=== PATIENT | female | born 1955 | race Asian ===

== ENCOUNTER 2022-04-26 12:01 | Day surgery (SDC) | payer OTHER, SELFPAY ==
--- NOTE | 2022-04-26 | PATH_ITS ---
[facility] Accession Number: [id number] No. of containers..01 Tissue . 01 Material submitted: . rectum - RECTAL . 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 No lymphovascular perineural invasion identified. See comment. [facility] 04/29/2022 1147 Local . 01 Comment: Immunohistochemical staining for markers and microsatellite stability (MSI) will be performed and the results will be reported as an addendum. . As part of routine quality control chemist, this case was also reviewed by Dr. Jaci Rios, who agrees with the interpretation. . Results were called to Dr. Veliz's medical editor, Ms Ruiz by Dr. Mora on 04/29/2022 at 1350 hours. . 01 Electronically signed: . Kelsie Mora MD, Pathologist NPI- [id number] . 01 Gross description: . The specimen is received in formalin labeled with the patient's name, , and rectal and consists of multiple toth soft tissue fragments, aggregating to 2.3 x 1.7 x 0.4 cm. The specimen is filtered into a biopsy bag. Submitted entirely in cassette A1. ([id number]) /[facility] 04/28/2022 1817 Local . 01 Pathologist provided ICD-10: C20 . 01 CPT . 164820 Specimen Comment: A courtesy copy of this report has been sent to [phone] Performed at: 01 [facility] [address] [place] [address] [address] [facility], [place], [place] [id number] MD Luis Carlos Gayle MD Phone: [phone]
[2022-04-26 13:42] VITALS: BP 121/76; PULSE 63; RESP 16; TEMP 36.2; O2SAT 100; BMI 32.3
[2022-04-26] MEDS: LACTATED RINGERS 1,000 ML 200 ML IV (13:50)
--- NOTE | 2022-04-26 15:06 | PM.HP.1 ---
History of Present Illness History of Present Illness Date Patient Seen: 04/26/22 Time Patient Seen: 15:06 Chief complaint: SDC Narrative: The patient presents for colorectal screening. Personal history of colonic polyps. Last colonoscopy 2016 demonstrated benign polyps. No personal or family history of colon cancer. On further history denies any recent gastrointestinal symptoms with the exception intermittent bright red blood per rectum. Patient History Family & Social History Social History: household members spouse Tobacco & Substance use: Smoking Status Never smoker alcohol intake current alcohol intake frequency holiday/special occasion Substance Use Type does not use Meds Home Medications and Allergies Allergies Allergy/AdvReac Type Severity Reaction Status Date / Time iodine AdvReac Intermediate Rash Verified 04/26/22 13:37 Exam Vital Signs (past 8 hours): - 04/26/22 13:42 Temperature 97.2 F L Pulse Rate 63 Respiratory Rate 16 Blood Pressure 121/76 Pulse Oximetry 100 Oxygen Delivery Method Room Air Oxygen Delivery Method Room Air Narrative Exam Narrative: General adult woman alert oriented no acute distress Abdomen soft nontender nondistended Assessment & Plan Assessment & Plan narrative: The patient requires colorectal screening and colonoscopy is recommended. Technical details were discussed. Risks, benefits, alternatives explained. Risks including but not limited to myocardial infarction, aspiration, bleeding, pain, missed lesion, incomplete examination, need for further radiographic studies, colonic perforation, and need for major abdominal surgery were discussed. All questions were answered to their satisfaction, and they are in agreement with this plan. Time Spent With Patient Critical Care time: I spent a total of [] minutes of critical care time on this patient's care today; this time is exclusive of procedural time.
[2022-04-26 15:40] VITALS: BP 107/60; PULSE 70; RESP 14; TEMP 35.9; O2SAT 96
--- NOTE | 2022-04-26 15:44 | PM.OP.COLON ---
Operative Date/Time/Diagnoses Date of procedure: 04/26/22 Time of procedure: 15:44 Pre-op diagnosis: Colorectal screening, rectal bleeding Post-op diagnosis: other (Rectal cancer) Procedure & Clinicians Study performed: Colonoscopy Same procedure as scheduled: Yes Indications: Colorectal screening, rectal bleeding Surgeon: Raul Veliz Procedure Notes Procedure in detail: The history and physical was performed/updated and the patient is ASA class is 2. The procedure was discussed in detail with the patient. Potential risks complications including infection, bleeding, missed diagnosis, perforation, need for surgery, and were explained. Their questions were answered and informed consent was obtained. Patient was brought to the procedure room and placed standard monitoring equipment. The patient's vital signs were monitored continuously throughout the entire procedure. Prior to starting time-out was performed. The patient was placed in the left lateral recumbent position. Procedural sedation was administered by anesthesia. Examination began with a thorough inspection of the perianal area there was no evidence of fissures, fistulae, external hemorrhoids or cutaneous malignancy. Digital rectal exam demonstrated firm anterior rectal mass approximately 6 cm the dentate line The colonoscopy scope was then placed into the anal canal and was advanced to the cecum, which was identified by the ileocecal valve, the appendiceal orifice and the confluence of the taenia. The scope was then slowly withdrawn examining colon thoroughly in all directions, irrigating it of any residual stool. Within the rectum on the anterior wall there is a firm friable mass with central necrosis size is approximately 4 cm. Multiple biopsies were taken with hot snare. Mass consistent in its appearance with a distal rectal carcinoma The patient tolerated the procedure well. They will be discharged once criteria are met. The prep was of good/excellent quality. The withdrawl time was 8 minutes. Specimen(s): other (Rectal mass) Impression: Rectal cancer Post-procedure Plan for aftercare: Follow-up in surgical clinic in 1 week time to discuss pathology findings Disposition: same day surgery
[2022-04-26 15:45] VITALS: BP 106/71; PULSE 69; RESP 25; O2SAT 96
[2022-04-26 15:50] VITALS: BP 112/74; PULSE 70; RESP 18; O2SAT 100
[2022-04-26 15:55] VITALS: BP 118/76; PULSE 67; RESP 18; O2SAT 100
[2022-04-26 16:48] VITALS: BP 136/69; PULSE 68; RESP 12; O2SAT 99
--- NOTE | 2022-04-26 16:53 | SUR.PHASEI ---
moved pt from phase 1 to room 5 to speak with , hand off to STEVEN Martinez.
== END 2022-04-26 16:55 | disposition home or self-care (01) ==
PROVIDERS: Referring Provider Surgery; Visit Provider Surgery
PROC: 0DJD8ZZ Inspection of Lower Intestinal Tract, Via Natural or Artificial Opening Endoscopic (ICD-10-PCS; CPT 45378; principal; 2022-04-26 14:00)
DX: C20 Malignant neoplasm of rectum (principal); Z86.010 Personal history of colon polyps
CPT/HCPCS: 45385; J2704

== ENCOUNTER → 2022-05-05 09:25 | Outpatient (CLI) | payer OTHER, SELFPAY ==
[2022-05-05 11:08] LABS: BUN Creatinine Ratio 17.2 (6-22); Blood Urea Nitrogen 15 mg/dL (7-17); Calcium 9.5 mg/dL (8.4-10.2); Carbon Dioxide 29 mmol/L (22-32); Chloride 103 mmol/L (98-107); Estimated Glomerular Filt Rate > 60 mL/min (>60); Glucose 160 mg/dL (80-110); HEMOLYSIS < 15 (0-50); Potassium 3.8 mmol/L (3.4-5.1); Sodium 138 mmol/L (137-145)
[2022-05-05 11:39] LABS: Carcinoembryonic Antigen 6.1 ng/mL (0.1-3.0)
== END ==
PROVIDERS: Referring Provider Surgery; Visit Provider Surgery
DX: C20 Malignant neoplasm of rectum (principal)
CPT/HCPCS: 36415; 80048; 82378

== ENCOUNTER → 2022-05-06 08:02 | Outpatient (CLI) | payer OTHER, SELFPAY ==
--- NOTE | 2022-05-06 08:04 | DI.MRI.S_ITS ---
PROCEDURE: MR PELIS WO/W CON INDICATIONS: Rectal Cancer TECHNIQUE: Coronal HASTE, sagittal T2 FSE, axial T1 FSE, axial and coronal nonbreath-hold T2 FSE. Axial dynamic VIBE during administration of contrast. Post-contrast axial and coronal VIBE/2-D FLASH with fat saturation from the iliac crests to the symphysis. Optional diffusion weighted imaging and ADC may be performed. COMPARISON: None. FINDINGS: Image quality: Excellent. Rectum: Morphology: Circumferential Clock face of tumor involvement: Multifocal: - from 6:00 to 11:00 on series 4, image 16. - 12 o'clock to 2 o'clock and 5:00 to 7:00 on series 4, image 15. Mucinous (high T2 signal): No Craniocaudal length: 5.7 centimeter (series 2, image 32) Distance to anal verge: 3.2 centimeter Distance to top of sphincter complex/anorectal junction: Not applicable, at the junction Relationship to anterior peritoneal reflection: Below Tumor at or below puborectalis sling: At and below T staging: Depth of extramural invasion: 5 mm. Extramural vascular invasion: None T3 tumors only: distance to mesorectal fascia (circumferential resection margin): Not applicable*. There is low level rectal involvement, grade 4, with tumor invading the levator muscles on the left (series 5, image 14). Pelvic organ involvement: Genitourinary: None. Pelvic sidewall (obturator internus, piriformis, ischiococcygeus muscles): No Pelvic floor (pubococcygeus, iliococcygeus, puborectalis, levator plate): Levator plate Sacrum: No Vessels (internal and external iliac arteries and veins): No Nerves (lumbosacral nerve roots): No Regional lymph nodes (mesorectal, inguinal, iliac): 3 mesorectal lymph nodes which meet strict criteria for suspicious. Two superior rectal nodes which meet criteria. Suspicious right external iliac chain node measuring 1.1 centimeter short axis (05/04). Other bowel and peritoneum: There is hypointense signal expanding the uterus and cervix. Bones: Marrow is normal in overall signal. IMPRESSION: Low rectal tumor invading the levator muscles on the right. Multiple abnormal mesorectal, superior rectal and right external iliac chain nodes. Hypointense signal expanding the endometrium and cervix. A uterine malignancy is suspected. Recommend pelvic ultrasound. Dictated by: Gary Mcclain M.D. on 05/06/2022 at 11:57 Approved by: Gary Mcclain M.D. on 05/06/2022 at 13:04
== END ==
PROVIDERS: Referring Provider Surgery; Visit Provider Surgery
DX: C20 Malignant neoplasm of rectum (principal); R59.0 Localized enlarged lymph nodes
CPT/HCPCS: 72197; A9579

== ENCOUNTER → 2022-05-07 09:27 | Outpatient (CLI) | payer OTHER, SELFPAY ==
--- NOTE | 2022-05-07 | DI.CT.S_ITS ---
PROCEDURE: CT CHEST ABDOMEN W CON INDICATIONS: Malignant neoplasm of rectum TECHNIQUE: After the administration of oral contrast and intravenous contrast, 5 mm thick sections acquired from the lung apices to the iliac crests. 5 mm coronal and sagittal reformats were performed, with additional 7 mm coronal MIP reformats through the lungs. For radiation dose reduction, the following was used: automated exposure control, adjustment of mA and/or kV according to patient size. The patient was pretreated before this injection for height and allergy. No immediate contrast reaction was experienced. COMPARISON: [facility], MR, MR PELVIS WO/W CON, 05/06/2022, 8:53. FINDINGS: Image quality: Excellent. CHEST: Lungs and pleura: No acute air space opacities. No pleural effusions or pneumothorax. Central and peripheral airways are patent and normal in caliber. Mediastinum: Heart size is normal. No pericardial effusion. No mediastinal or hilar adenopathy by size criteria. Thoracic aorta and central pulmonary arteries are normal in size. Esophagus is normal in caliber. There is a small hiatal hernia. Chest wall: No axillary or supraclavicular adenopathy by size criteria. Thyroid gland demonstrates a 2.4 cm right thyroid nodule. ABDOMEN: Solid organs: Liver is normal in size and enhancement. Gallbladder wall is not thickened . Biliary system is non dilated. Pancreas enhances normally. Spleen is normal in size and enhancement. No adrenal nodules. Kidneys are normal in size and enhancement, without hydronephrosis. Peritoneum and bowel: Bowel loops demonstrate normal wall thickness and caliber. No free fluid or air. The appendix measures at the upper limits of normal for size at 6 mm, yet without surrounding inflammatory change. Nodes and vessels: No retroperitoneal or mesenteric adenopathy by size criteria. Aorta and inferior vena cava are normal in caliber. Incidental note is made of a circumaortic left renal vein. Bones: No suspicious bony lesions. No vertebral body compression fractures. Age-appropriate bony degenerative changes are seen. Miscellaneous: No ventral hernias. The uterus is only partially seen on this study. IMPRESSION: No pulmonary nodules are seen. No liver masses are seen. No enlarged retroperitoneal lymph nodes are seen. There is a 2.4 cm right thyroid nodule. When clinically appropriate, please consider a follow-up thyroid ultrasound for further evaluation. Appendix measuring at the upper limits of normal, without associated inflammatory change. Additional findings: Small hiatal hernia Circumaortic left renal vein Dictated by: Duran Martínez M.D. on 05/07/2022 at 14:57 Approved by: Duran Martínez M.D. on 05/07/2022 at 15:01
== END ==
PROVIDERS: Referring Provider Surgery; Visit Provider Surgery
DX: C20 Malignant neoplasm of rectum (principal); E04.1 Nontoxic single thyroid nodule; K44.9 Diaphragmatic hernia without obstruction or gangrene
CPT/HCPCS: 71260; 74160; Q9967

== ENCOUNTER 2022-06-10 12:05 | Day surgery (SDC) | payer OTHER, SELFPAY ==
[2022-06-10 13:03] VITALS: BP 121/72; PULSE 63; RESP 18; TEMP 36.4; O2SAT 99; BMI 32.9
== END 2022-06-10 17:33 | disposition home or self-care (01) ==
LOC: OR 12:06
PROVIDERS: Referring Provider Surgery; Visit Provider Surgery
DX: Z53.9 Procedure and treatment not carried out, unspecified reason (principal)
CPT/HCPCS: J1885

== ENCOUNTER 2022-06-11 07:33 | Day surgery (SDC) | payer OTHER, SELFPAY ==
--- NOTE | 2022-06-11 | DI.RAD.S_ITS ---
PROCEDURE: XR CHEST 1V INDICATIONS: PORT A CATH PLACEMENT TECHNIQUE: One view of the chest was acquired. COMPARISON: [facility], CT, CT CHEST ABDOMEN W CON, 05/07/2022, 11:07. FINDINGS: Surgical changes and devices: Right chest port with the tip in the superior vena cava.. Lungs and pleura: Lungs are clear. No pleural effusions or pneumothorax. Mediastinum: Mediastinal contours appear normal. Heart size is normal. Bones and chest wall: No suspicious bony lesions. Overlying soft tissues appear unremarkable. IMPRESSION: Chest port tip within the right superior vena cava. No pneumothorax. Dictated by: Butch Gamez M.D. on 06/11/2022 at 9:29 Approved by: Butch Gamez M.D. on 06/11/2022 at 9:31
[2022-06-11 08:09] VITALS: BP 127/75; PULSE 68; RESP 16; TEMP 36.3; O2SAT 99; BMI 32.7
[2022-06-11] MEDS: LACTATED RINGERS 1,000 ML 100 ML IV (08:09)
[2022-06-11] MEDS: ACETAMINOPHEN 325 MG TABLET 975 MG PO (08:42)
--- NOTE | 2022-06-11 09:07 | P.HP_ITS ---
History of Present Illness History of Present Illness Date Patient Seen: 06/11/22 Time Patient Seen: 09:07 Chief complaint: port placement Narrative: 66-year-old woman with a history of rectal cancer here for elective Port-A-Cath placement. No prior indwelling venous catheter. She is feeling well today. [facility] Surgical History (Updated 06/08/22 @ 11:25 by Mitchell Marcelo MD) Hx of colonoscopy (04/26/22) Social History (System 03/31/22 @ 14:50 by Jewels Bee) household members: spouse Smoking Status: Never smoker alcohol intake: current Meds Home Medications and Allergies Home Medications Medication Instructions Recorded Confirmed Type ascorbic acid (vitamin C) 500 mg 500 mg PO DAILY 05/25/22 06/11/22 History capsule,extended release (Vitamin C) cholecalciferol (vitamin D3) 25 25 mcg PO DAILY 05/25/22 06/11/22 History mcg (1,000 unit) capsule (Vitamin D3) diphenhydramine HCl 25 mg capsule 25 mg PO DAILY allergy 05/25/22 06/11/22 History (Benadryl) multivitamin 1 tab PO DAILY 05/25/22 06/11/22 History tumeric 100 mg-chet 150 mg-olive 1 cap PO DAILY 05/25/22 06/11/22 History 50 mg-oreg 150 mg-caprylate capsule Allergies Allergy/AdvReac Type Severity Reaction Status Date / Time iodine AdvReac Intermediate Rash Verified 06/11/22 07:53 Exam Vital Signs (past 8 hours): - 06/11/22 08:09 Temperature 97.4 F L Pulse Rate 68 Respiratory Rate 16 Blood Pressure 127/75 Pulse Oximetry 99 Oxygen Delivery Method Room Air Oxygen Delivery Method Room Air Narrative Exam Narrative: General adult woman alert oriented no acute distress Chest nonlabored respiration Abdomen soft nontender nondistended Assessment & Plan Assessment and plan (1) Rectal cancer: Status: Acute Assessment & Plan narrative: 66-year-old woman with a history of rectal cancer here for Port-A-Cath placemen t. Overview of the procedure was discussed with the patient at the bedside. Operative risks including hemorrhage, infection, mechanical device failure, pneumothorax, embolism, heart attack stroke and were discussed. Questions have been answered she is in agreement with this plan. She provides her written and verbal consent to proceed.
[2022-06-11] MEDS: CEFAZOLIN 2 GM/100 ML PREMIX 100 ML IV (09:09)
--- NOTE | 2022-06-11 09:24 | SUR.OPER ---
Supine on padded OR bed, head on pillow, arms padded and tucked at sides, legs uncrossed, safety belt at thigh, tape over blanket over lower legs .
[2022-06-11] MEDS: BUPIVACAINE 0.5% (PF) 10 ML VIAL INJ (09:34)
[2022-06-11] MEDS: HEPARIN 5,000 UNIT, SODIUM CHLORIDE 0.9% 50 ML IV (09:35)
--- NOTE | 2022-06-11 10:05 | P.OP_ITS ---
Operative Date/Time/Diagnoses Date of procedure: 06/11/22 Time of procedure: 10:05 Pre-op diagnosis: Rectal cancer Post-op diagnosis: same Procedure & Clinicians Procedure: Port-A-Cath placement with ultrasound guidance Same procedure as scheduled: Yes Indications: 66-year-old woman with rectal cancer plan is neoadjuvant chemotherapy she is here today for Port-A-Cath placement. Surgeon: Raul Veliz Click Yes if Unassisted: Yes Anesthesia Type: General Operative Notes Findings: Tip of the catheter is within the SVC on fluoroscopy. Port draws and flushes easily Specimen(s): none sent Estimated Blood Loss (mL): 20 Procedure in detail: Patient was brought to the operating room placed supine on table. Bilateral lower extremity compressive devices were applied. General anesthesia was induced and he was intubated with an LMA. He was then prepped and draped in usual sterile fashion. Time-out was performed ensure the correct patient procedure necessary equipment within the operating room. He received 2 g of Ancef prior to incision. Under ultrasound guidance the right internal jugular vein was accessed under direct visualization. The guidewire was then threaded through the needle. Its placement was then confirmed using fluoroscopy. The dilator was then placed over the guidewire. The catheter was then inserted through the sheath. Placement was again confirmed with fluoroscopy. A subcutaneous pocket was made in the right chest wall. The tunneler device was used to move the catheter from the neck to the chest pocket. The port was attached after it was primed with heparined saline. The port was tested to ensure that it flushed easily and had good blood return. The port was then secured to the underlying fascia using interupted 0 Prolene suture. Hemostasis was achieved. The wound was irrigated with sterile saline. The subcutaneous tissues were reapproximated with the 3 0 Vicryl and then skin closed with 4-0 Monocryl. The skin was sealed with Dermabond. Patient tolerated procedure well. The sponge and instrument count at the end operation was correct. Pa tieboom emerged from general anesthesia was extubated and taken to the postoperative care unit in stable condition Chest x-ray in the postoperative care unit is pending. Complications: none Post-operative Condition: stable Disposition: same day surgery
[2022-06-11 10:06] VITALS: BP 108/63; PULSE 97; RESP 12; TEMP 36.1; O2SAT 96
[2022-06-11 10:07] VITALS: BP 118/71; PULSE 90; RESP 14; O2SAT 96
[2022-06-11 10:11] VITALS: BP 111/70; PULSE 60; RESP 18; O2SAT 93
[2022-06-11] MEDS: KETOROLAC 30 MG/ML VIAL 15 MG IV (10:14)
[2022-06-11 10:16] VITALS: BP 118/71; PULSE 62; RESP 12; TEMP 36.6; O2SAT 95
[2022-06-11 10:21] VITALS: BP 113/73; PULSE 59; RESP 12; TEMP 36.6; O2SAT 96
== END 2022-06-11 10:45 | disposition home or self-care (01) ==
PROVIDERS: Referring Provider Surgery; Visit Provider Surgery
PROC: (CPT 36561; principal; 2022-06-11 09:00)
DX: C20 Malignant neoplasm of rectum (principal)
CPT/HCPCS: 36561; 71045; 76000; C1788; J0690; J1644; J1885; J2405; J2704; J3010

== ENCOUNTER → 2023-03-15 10:45 | Outpatient (CLI) | payer MEDICARE, OTHER, SELFPAY ==
--- NOTE | 2023-03-15 | OV.WND_ITS ---
Progress Note Details Patient Name: Fern Grace Patient Number: [id number] Clinician: Jess Malin RN Patient Date of : 1955 Physician / Resident Associate: Clay Singh Patient SUBJECTIVE Chief Complaint This information was obtained from the Patient. Skin issues around stoma Allergies iodine (Reaction: rash) HPI This information was obtained from the Patient. The following HPI elements were documented for the patient's wound: Context: colostomy The patient is a 67-year-old female with rectal cancer who was referred by ROCIO Pate for colostomy care. She is status post APR 02/07/23 and has made an uneventful recovery. The patient did receive neoadjuvant chemotherapy and radiation. She reports that her appetite and strength are slowly improving. She denies having any abdominal pain or chandler stoma skin irritation nor has she had any colostomy leakage. No fever or chills. Her abdominal incision has healed without any problems. LABS: 09/05/22: WBC 7.5, hemoglobin 12.7, HCT 37.3, PLT 146, electrolytes normal, GFR greater than 60, AST 41, remainder of LFTs normal Family History This information was obtained from the Patient. Unknown History- Father Lung Disease- Mother Social History This information was obtained from the Patient. Lives in: home with Medical History This information was obtained from the Patient. Patient has a medical history of: Rectal cancer Colostomy Multinodular goiter Thickened endometrium Vaginal spotting Fern Grace [id number] 1955 Additional Information Does patient have a history of Cancer? Yes? Complete all questions.: Yes Location of Cancer: Rectal Patient underwent Radiation Treatment? If yes, answer question below.: Yes Surgical History This information was obtained from the Patient. Patient has a surgical history of: LAR with Colostomy- 02/07/2023 Review of Systems (ROS) This information was obtained from the Patient. Complaints and Symptoms Patient denies com plaints or sy m ptom s related to: Cardiovascular (Central): Chest Pain, Dyspnea on Exertion Constitutional Symptoms (General Health): Chills, Fever Gastrointestinal (GI): Stomach/abdominal pain Prior Wound History: Bleeding, Drainage, Erythema, Pain Respiratory: Cough, Shortness of Breath OBJECTIVE Vitals Height/Length: 59 in (149.86 cm), Weight: 144.4 lbs (65.64 kgs), BMI: 29.2, Temperature: 98.3 ?F (36.83 ?C), Pulse: 65 bpm, Respiratory Rate: 16 breaths/min, Blood Pressure: 100/65 mmHg, Pulse Oximetry: 99 %. Physical Exam Constitutional: Vital signs reviewed and noted. Well developed, well nourished, and in no acute distress. Alert and oriented x3. Respiratory: Even respirations without use of accessory muscles. No intercoastal retractions noted. Even and non labored respiration. Gastrointestinal (GI): Soft, nontendar, and nondistened, well healed midline incision, colostomy left upper quadrant, no chandler stoma skin irritation. Integumentary (Hair, Skin): See wound assessment. Neurological: Sensation: Symmetric function by informal observation. Psychiatric: Orientation to time, place and person: Normal affect with normal thought pattern. Additional Information The patient's potential to heal is: excellent. ASSESSMENT Active Problems Fern [id number] 1955 ICD-10 (Encounter Diagnosis) Z93.3 - Colostomy status (Encounter Diagnosis) Z43.3 - Encounter for attention to colostomy (Encounter Diagnosis) C20 - Malignant neoplasm of rectum General Notes The patient is status post APR for treatment of rectal cancer. The colostomy is healing well and she is not currently having any difficulties. Plan to continue colostomy care as per recommendations by Jess Bravo RN. PLAN Additional Orders: Hygiene May shower - Without using your appliance Dressings Other order - Stoma continue to use appliance #[id number]. I will order you [facility] [employer] Physician Review: Reviewed and evaluated labs. Discussed the Plan of Care @ bedside with - the patient and I, as the physician, have reviewed the orders scribed by the center RN's and agree. General Notes Ostomy Secretes Go to their website to look at Noe Babb, under garments . Review [employer] web site. Plan of Care: 01. ENSURE/ESTABLISH OPTIMAL BLOOD FLOW : - Reviewed, not applicable 02. ASSESS FOR/TREAT INFECTION : - Evaluate for signs and symptoms of infection and document findings. - Obtain culture and sensitivity (CandS) or tissue culture when infection is suspected. (NOTE:) Consider repeating when wound healing <40% after 30 days of wound care. - Order appropriate antibiotics based on patient presentation and culture and sensitivity results. Instruct patient on the importance of taking medication as prescribed. - Order Infectious Disease consult. 03. DEBRIDE WEEKLY OR MORE OFTEN PRN : - Reviewed, not applicable 04. OPTIMIZE GLUCOSE CONTROL and NUTRITION : - Complete a nutrition risk assessment. 05. OFFLOADING PLAN : - Reviewed, not applicable 06. OPTIMIZE HOST FACTORS: - Assess and review patient history for wound etiology, co-morbid conditions, medication regime, and smoking history. 07. DRESSING SELECTION : - Choose topical treatments and/or dressing based on wound type and appearance, periwound skin condition, wound size and depth, anatomic location, volume of exudate, edema in the lower extremities, and risk or presence of infection. - stoma supplies 08. ADVANCED MODALITIES : - Reviewed, not applicable 09. FALL PREVENTION : - Reviewed, not applicable Fern Grace [id number] 1955 10. PAIN MANAGEMENT : - Reviewed, not applicable 11. MEASURABLE GOALS for Wound Healing and/or Hyperbaric Oxygen Therapy : - Reviewed, not applicable 12. DURATION/FREQUENCY of Wound Care Visits : - Reviewed, not applicable 13. OSTOMY : - Educate the patient on all aspects of ostomy care. - Educate the patient regarding supply ordering. - Educate the patient on nutrition/hydration issues. - Instruct the patient on resources available. - Evaluate the patient's understanding on the signs of complications and when to contact the physician. Electronic Signature(s) Signed By: Date: Clay Singh MD 03/16/2023 10:28:12 (PT) Entered By: Clay Singh MD on 03/16/2023 10:27:45 (PT) Fern Grace [id number] 1955
== END ==
PROVIDERS: PCP Physician Assistant Medical; Visit Provider Surgery
DX: Z43.3 Encounter for attention to colostomy (principal); C20 Malignant neoplasm of rectum
CPT/HCPCS: 99203; 99213

== ENCOUNTER → 2023-04-12 11:54 | Outpatient (CLI) | payer MEDICARE, OTHER, SELFPAY | LOC: WC 11:56 | PROVIDERS: PCP Physician Assistant Medical; Visit Provider Nurse Practitioner Family | DX: Z43.3 Encounter for attention to colostomy (principal) | CPT/HCPCS: 99212 ==

== ENCOUNTER → 2023-05-03 10:07 | Outpatient (CLI) | payer MEDICARE, OTHER, SELFPAY | LOC: WC 10:11 | PROVIDERS: PCP Physician Assistant Medical; Visit Provider Surgery | DX: Z43.3 Encounter for attention to colostomy (principal); C20 Malignant neoplasm of rectum; L24.B0 Irritant contact dermatitis related to unspecified stoma or fistula | CPT/HCPCS: 99212; 99213 ==

== ENCOUNTER → 2023-05-10 13:09 | Outpatient (CLI) | payer MEDICARE, OTHER, SELFPAY | LOC: WC 13:11 | PROVIDERS: PCP Physician Assistant Medical; Visit Provider Surgery | DX: Z93.3 Colostomy status (principal) | CPT/HCPCS: 99213 ==

== ENCOUNTER → 2023-06-28 15:27 | Outpatient (CLI) | payer MEDICARE, OTHER, SELFPAY | PROVIDERS: PCP Physician Assistant Medical; Visit Provider Surgery | DX: Z43.3 Encounter for attention to colostomy (principal); C20 Malignant neoplasm of rectum; B35.9 Dermatophytosis, unspecified | CPT/HCPCS: 99213 ==

== ENCOUNTER 2023-09-28 08:20 | Day surgery (SDC) | payer MEDICARE, OTHER, SELFPAY ==
--- NOTE | 2023-09-28 | PATH_ITS ---
[facility] Accession Number: [id number] No. of containers..01 Tissue . 01 Material submitted: . liver - LEFT HEPATIC LOBE NEEDLE CORE BIOPSY X5 . 01 Diagnosis: LIVER, LEFT HEPATIC LOBE, NEEDLE CORE BIOPSY: Liver parenchyma with focal invasive adenocarcinoma, moderately differentiated. Immunophenotypic features are compatible with gastrointestinal tract primary, and favor colorectal origin; see comment. [facility] 10/03/2023 1332 Local . 01 Comment: Immunophenotypic features including positive CK20, positive CDX-2, and negative CK7 are most consistent with colorectal origin. However, upper gastrointestinal tract origin, including hepatobiliary origin, are not entirely excluded, and correlation with clinical and imaging features is needed for further evaluation. There is no evidence of breast, gynecologic, or lung origin (negative GATA3, PAX-8, and TTF-1, respectively). . These results were discussed with Dr. Mata by Dr. Gayle on 10/03/2023 at 10:45 a.m. At the request of Dr. Mata, mismatch repair and HER2 immunostains will be performed and reported as an addendum. . Dr. Rios has also reviewed this case and agrees with the diagnosis of adenocarcinoma. . 01 Electronically signed: . Luis Carlos Gayle MD, Pathologist NPI- [id number] . 01 Gross description: . Received in formalin with two patient identifiers and no site on jar, are five toth needle cores, 0.2 to 1.0 cm in length. Submitted entirely in A1. ([id number]) /MRV 09/29/2023 1613 Local . 01 Microscopic: . H/E stained sections show liver parenchyma with a small focus of adenocarcinoma composed of irregular gland formations amid fibrous stroma. This focus measures approximately 1.5 mm and is present in one of the biopsy cores. A select panel of immunohistochemical stains was performed for further evaluation. This reveals that the malignant cells are positive for CK20, villin, and CDX-2, and are negative for CK7. The malignant cells are also negative for TTF-1, GATA3, and PAX-8. The remaining uninvolved liver parenchyma shows a mild increase in lobular inflammatory cells in the vicinity of the neoplasm, and otherwise appears relatively unremarkable. A reticulin stain shows liver cords with normal thickness. A trichrome stain shows no significantly inreased fibrosis. All controls stain appropriately. . . * This test was developed and its performance characteristics determined by [facility]. It has not been cleared or approved by the [place] Food and Drug Administration. The FDA has determined that such clearance or approval is not necessary. This test is used for clinical purposes. It should not be regarded as investigational or for research. . 01 Pathologist provided ICD-10: C78.7 . 01 CPT . 260222, T74685, W99954, 496761, 762150 Specimen Comment: A courtesy copy of this report has been sent to [phone] Specimen Comment: [id number] Performed at: [address] [facility] [address], [place], [place] [id number] MD Luis Carlos Gayle MD Phone: [phone]
--- NOTE | 2023-09-28 08:21 | DI.CT.S_ITS ---
PROCEDURE: CT BIOPSY LIVER Sedation analgesia for 20 minutes minutes. INDICATIONS: RECTAL CANCER / LIVER LESION TECHNIQUE: The indications, alternatives, benefits, risks, and possible complications of the procedure were communicated to the patient. Informed written consent from the patient was obtained and placed in the chart. Continuous EKG and hemodynamic monitoring was started by trained personnel. The patient was brought to the CT suite and gasoline catalyst operator spiral CT imaging was performed with localization grid. The appropriate site for percutaneous access to the biopsy target was marked, was prepped and draped sterilely, and was infused with local anaesthesia. Under CT guidance, a core biopsy trocar and needle set was advanced to the biopsy target, and specimen(s) were obtained. The trocar and needle were then removed, and the patient was sent for post-procedure monitoring. COMPARISON: None. FINDINGS: Biopsy site: Left lobe of the liver lesion Needle: 18 gauge Temno biopsy needle with 10 cm introducer trocar. Number of passes: 5 Medications: 1% lidocaine for local anaesthesia. IV Fentanyl and Versed for conscious sedation for approximately 20 minutes minutes (see nursing record). Complications: None. Gel-Foam utilized. IMPRESSION: Successful CT-guided biopsy of left lobe liver lesion. No immediate complication. Procedure was well tolerated. Dictated by: Thomas Moore M.D. on 09/28/2023 at 14:03 Approved by: Thomas Moore M.D. on 09/28/2023 at 14:15
[2023-09-28 10:00] LABS: Hematocrit 39.8 % (36-46)
[2023-09-28 10:14] VITALS: BP 130/70; PULSE 74; O2SAT 100
[2023-09-28 10:36] VITALS: BP 115/61; PULSE 73; RESP 16; O2SAT 100
[2023-09-28 10:44] VITALS: BP 117/64; PULSE 68; RESP 16; O2SAT 100
[2023-09-28 10:48] VITALS: BP 101/63; PULSE 59; RESP 14; O2SAT 100
[2023-09-28] MEDS: fentaNYL 100 MCG/2 ML INJ IV (10:50)
[2023-09-28] MEDS: MIDAZOLAM 2 MG/2 ML VIAL IV (10:52)
[2023-09-28 10:54] VITALS: BP 113/65; PULSE 61; RESP 14; O2SAT 100
== END 2023-09-28 10:55 | disposition home or self-care (01) ==
LOC: CT 08:49 → OR 09:18
PROVIDERS: Radiology Diagnostic Radiology; PCP Physician Assistant Medical; Referring Provider Internal Medicine Hematology & Oncology; Visit Provider Internal Medicine Hematology & Oncology
DX: C78.7 Secondary malignant neoplasm of liver and intrahepatic bile duct (principal); C20 Malignant neoplasm of rectum
CPT/HCPCS: 47000; 77012; 85014; 85049; 85610; 85730; G0378; G0379; J2250; J3010

== ENCOUNTER → 2024-08-14 13:37 | Outpatient (CLI) | payer MEDICARE, OTHER, SELFPAY | PROVIDERS: Family Provider Physician Assistant Medical; PCP Physician Assistant Medical; Referring Provider Physician Assistant Medical; Visit Provider Surgery | DX: Z43.3 Encounter for attention to colostomy (principal); C20 Malignant neoplasm of rectum; E04.2 Nontoxic multinodular goiter; N85.00 Endometrial hyperplasia, unspecified | CPT/HCPCS: 99213 ==